=== PATIENT | female | born 1940 | race Caucasian/White ===

== ENCOUNTER 2020-11-28 16:15 | Inpatient (IN) ==
[2020-11-28] MEDS ORDERED: 0.9 % SODIUM CHLORIDE 1,000 ML IV ONE (16:22)
--- NOTE | 2020-11-28 17:00 | Emergency Department Note ---
HPI <Ming Azevedo PA-C - Last Filed: 11/28/20 18:16> General Chief complaint: Recheck/Abnormal Lab/Rx Stated complaint: Low sodium Time Seen by Provider: 11/28/20 16:18 Source: patient and family Mode of arrival: wheelchair Limitations: no limitations History of Present Illness HPI Narrative: Narrative: 80-year-old female presents emergency department with complaints of cough, headache, loss of taste and smell, nausea, fatigue, body aches, and a low sodium. She was seen at urgent care today by Dr. Littlejohn and a full work-up was done including CBC, CMP, urine, chest x-ray, abdominal x-ray. Which revealed a sodium of 121. There is also a developing infiltrate in the right lower lobe. Martha Covid test pending. Patient's son was diagnosed with Covid couple days ago and as she had been around him over the weekend as well. Patient was diagnosed with a urinary tract infection here in our department about 12 days ago and finished the ciprofloxacin. Patient reports initially she started to get better but especially in the last 5 days her symptoms have been getting worse. She has been coughing quite a bit which produces clear sputum. Her headache has been constant and her loss of taste and smell are new. She has never been diagnosed with hyponatremia before that she knows of. She has not been eating or drinking much over the last couple weeks according to her daughte r. Patient has been short of breath on exertion but denies chest pain, abdominal pain, vomiting. She did have diarrhea the week before but it has not had it in about a week or so now. Related Data Home Medications Medication Instructions Recorded Confirmed albuterol sulfate 2 puff INH Q4-6HP PRN 11/02/15 11/28/20 aspirin 325 mg PO QDAY 11/02/15 11/28/20 Allergies Allergy/AdvReac Type Severity Reaction Status Date / Time Iodinated Contrast Media Allergy Intermediate Difficulty Verified 11/28/20 20:17 [Iodinated Contrast Media - Breathing IV Dye] codeine AdvReac Mild Vomiting Verified 11/28/20 20:17 Review of Systems <Ming Azevedo PA-C - Last Filed: 11/28/20 18:16> ROS ROS Narrative: Narrative: All systems ED: reviewed and negative except as stated. Constitutional: Reports weakness Respiratory: Reports shortness of breath and cough Gastrointestinal: Reports nausea Musculoskeletal: Reports myalgia Neurological: Reports headache Endocrine: Reports fatigue PFSH <Ming Azevedo PA-C - Last Filed: 11/28/20 18:16> Narrative Patient History Narrative: Narrative: Medical/Surgical/Family History All Active Problems (Updated 11/28/20 @ 18:16 by Ming Azevedo PA-C) Acute hyponatremia (Acute) COVID (Acute) Upper abdominal pain (Acute) UTI (urinary tract infection) (Acute) Acute flank pain (Acute) Iron deficiency anemia (Acute) Upper respiratory infection (Acute) Pyelonephritis of left kidney (Acute) Diverticulosis (Acute) Pyelonephritis of left kidney (Acute) Cough (Acute) Thyroid gland disease (Chronic) Stroke (Chronic ~2013) Rheumatic fever (Chronic ~1996) Joint pain (Chronic) Hypertension, essential (Chronic) Heart trouble (Chronic) Daytime sleepiness (Chronic) Asthma (Chronic) Anemia (Chronic) Acid reflux (Chronic) Acute right hip pain (Acute) Trochanteric bursitis of right hip (Acute) Medical History Acid reflux Acute flank pain Acute right hip pain Anemia Asthma Daytime sleepiness Heart trouble Hypertension, essential Iron deficiency anemia Joint pain Rheumatic fever (~1996) Dr. Bauer Stroke (~2013) Thyroid gland disease Trochanteric bursitis of right hip Upper abdominal pain UTI (urinary tract infection) Surgical History H/O carotid endarterectomy (~2015) [place] H/O colonoscopy Dr. Medina H/O lymph node excision (~2013) [facility] H/O: hysterectomy (~1976) [facility] History of tonsillectomy and adenoidectomy (~1941) 1 years old Hx of appendectomy (~1945) 5 years old Family History Father Cancer Daughter Cancer Daughters x 2 Mother Hypertension, essential Thyroid disease Social History Smoking Status: Never smoker Alcohol Intake Frequency: does not drink Substance Use: does not use Exam <Ming Azevedo PA-C - Last Filed: 11/28/20 18:16> Narrative Narrative: Narrative: General Limitations: no limitations Head Head: Present atraumatic and normocephalic Eye Eye: Present EOMI Respiratory Respiratory: Present other (Mild right lower lobe Rales. No rhonchi or wheezes. No tachypnea no signs of respiratory distress) Cardiovascular Cardiovascular: Present regular rate, irregular rhythm and normal heart sounds Adbominal Abdominal: Present soft and other (Nontender, no rebound tenderness no guarding) Neurological Neurological: Present alert and oriented X3 Psychiatric Psychiatric: Present normal affect Skin Skin: Present warm (WNL), dry and normal color Course <Ming Azevedo PA-C - Last Filed: 11/28/20 18:16> Vital Signs Vital signs: Vital Signs Temperature 98.7 F 11/28/20 16:15 Pulse Rate 97 H 11/28/20 16:15 Respiratory Rate 21 11/28/20 16:15 Blood Pressure 170/82 11/28/20 16:15 Pulse Oximetry (%) 97 11/28/20 16:15 Temperature 99.2 F H 11/28/20 18:52 Pulse Rate 94 H 11/28/20 18:52 Respiratory Rate 18 11/28/20 18:52 Blood Pressure 153/46 11/28/20 18:52 Pulse Oximetry (%) 96 11/28/20 18:52 MDM <Ming Azevedo PA-C - Last Filed: 11/28/20 18:16> MDM Narrative Medical decision making narrative: Narrative: Patient's labs were reviewed Rapid Covid positive Patient will be admitted for hyponatremia and Covid. I spoke with the hospitalist Dr. Aly who agreed to admit the patient for further evaluation and treatment. Lab Data Result diagrams: 11/28/20 20:10 Labs: Lab Results 11/28/20 11/28/20 Range/Units 17:52 17:52 POC Hct 39 (36-48) % POC Sodium 123 L (133-145) mEq/L Sodium TNP POC Potassium 4.1 (3.3-5.1) mEql/L Potassium TNP POC Chloride 87 L (96-108) mEq/L Chloride TNP Carbon Dioxide TNP POC Total CO2 28 (22-30) mmol/L Anion Gap TNP POC BUN 15 (6-20) mg/dL BUN TNP Creatinine TNP POC Creatinine 0.7 (0.6-1.2) mg/dL GFR Calculation TNP Glucose TNP POC Glucose 102 (70-105) mg/dL Osmolality 256 L (280-300) mOSM/kg Uric Acid 3.3 (2.5-8.0) mg/dL Calcium TNP POC WB Ioniz Calcium 1.05 L (1.16-1.32) mmEq/L TSH 4.63 (0.27-5.01) uIU/mL ED POC Tests ED POC Tests: ARELIS - SARS Antigen Positive Discharge Plan Patient/Caregiver Discharge Instructions Pt seen by [facility]MIST/PA only: Yes Clinical Impression: Acute hyponatremia, COVID Patient Disposition: Xfer As Inpt ([facility]) Condition: Serious Discharge Date/Time: 11/28/20 18:30
--- NOTE | 2020-11-28 17:45 | Internal Med History&Physical ---
HPI History of Present Illness Patient information: Note initiated : 11/28/20 at 5:41 pm Service Date, if different from initiated Date: [] Patient: Nena Krishnan a 80 y/o F admitted on for Low sodium. Chief Complaint: [] History of present illness: Ms. Krishnan is a 80 year old F Presents to minor care for generalized weakness fatigue headaches fevers chills nausea but no vomiting a cough that is mostly dry but occasionally productive. Poor appetite. Also has some dyspnea. Her son who she lives with has tested positive for Covid. She has not been vaccinated. Work-up was essentially unremarkable and the monitor except for she had a sodium of 121. She denies any diuretics. She was saturating well on room air. Chest x-ray showed COPD changes and likely scattered fibrosis with possibly developing infiltrate in right lung base. Review of Systems: Pertinent positives as above. Denies vomiting/chest or abdominal pain/diarrhea. Otherwise see above. PFSH PFSH All Active Problems Upper abdominal pain (Acute) UTI (urinary tract infection) (Acute) Acute flank pain (Acute) Iron deficiency anemia (Acute) Upper respiratory infection (Acute) Pyelonephritis of left kidney (Acute) Diverticulosis (Acute) Pyelonephritis of left kidney (Acute) Cough (Acute) Thyroid gland disease (Chronic) Stroke (Chronic ~2013) Rheumatic fever (Chronic ~1996) Joint pain (Chronic) Hypertension, essential (Chronic) Heart trouble (Chronic) Daytime sleepiness (Chronic) Asthma (Chronic) Anemia (Chronic) Acid reflux (Chronic) Acute right hip pain (Acute) Trochanteric bursitis of right hip (Acute) Medical History Acid reflux Acute flank pain Acute right hip pain Anemia Asthma Daytime sleepiness Heart trouble Hypertension, essential Iron deficiency anemia Joint pain Rheumatic fever (~1996) Dr. Bauer Stroke (~2013) Thyroid gland disease Trochanteric bursitis of right hip Upper abdominal pain UTI (urinary tract infection) Surgical History H/O carotid endarterectomy (~2015) [place] H/O colonoscopy Dr. Medina H/O lymph node excision (~2013) [facility] H/O: hysterectomy (~1976) [facility] History of tonsillectomy and adenoidectomy (~1941) 1 years old Hx of appendectomy (~1945) 5 years old Family History Father Cancer Daughter Cancer Daughters x 2 Mother Hypertension, essential Thyroid disease Social History (Updated 03/30/17 @ 18:31 by Reva Palacios DO) marital status: alcohol intake frequency: does not drink substance use type: does not use MEDS/ALLERGIES Home Medications and Allergies Home Medications Medication Instructions Recorded Confirmed Type albuterol sulfate 2 puff INH Q4-6HP PRN 11/02/15 11/28/20 History aspirin 325 mg PO QDAY 11/02/15 11/28/20 History Allergies Allergy/AdvReac Type Severity Reaction Status Date / Time codeine AdvReac Unknown Vomiting Verified 11/28/20 16:15 Iodinated Contrast Media AdvReac Unknown Difficulty Verified 11/28/20 16:15 [Iodinated Contrast Media - Breathing IV Dye] EXAM Constitutional Vitals: Temp Pulse Resp BP Pulse Ox 98.7 F 94 H 26 H 170/82 94 11/28/20 16:15 11/28/20 17:34 11/28/20 17:34 11/28/20 16:15 11/28/20 17:34 Exam: General: Alert, Awake, No acute Distress Eyes/N/T: EOMI, PERRL, dry MM Head/Neck: neck supple, normocephalic atraumatic CV: RRR, No murmurs, normal s1/s2 Pulm: Clear b/l, no wheezing/rhonchi/rales Abd: soft, nontender, +BS x4 Ext: no clubbing/cyanosis/edema Neuro: Alert, no focal deficits, moves all extremities, CN 2-12 grossly intact, symmetrical strength b/l upper/lower, sensations intact b/l upper/lower Skin: warm/dry A/P Narrative A/P Narrative: A: *Hyponatremia subacute on likely chronic component: *Covid (+): -On room air *h/o Asthma/COPD: on home IH's, no O2 P: -hyponatremia w/u pending -NS IVF -f/u sodium -pt/ot -ppx: lovenox code status: cpr/shock ok but no intubation Time Spent With Patient Time: Total time spent is greater than 50% in coordination of care (as documented) at patient's floor/unit and/or counseling patient:
[2020-11-28 18:02] LABS: POC Blood Urea Nitrogen 15 mg/dL (6-20); POC CO2 28 mmol/L (22-30); POC Calcium, Ionized 1.05 mmEq/L (1.16-1.32); POC Chloride 87 mEq/L (96-108); POC Creatinine 0.7 mg/dL (0.6-1.2); POC Glucose, Random 102 mg/dL (70-105); POC Hematocrit 39 % (36-48); POC Potassium 4.1 mEql/L (3.3-5.1); POC Sodium 123 mEq/L (133-145)
[2020-11-28 19:25] LABS: Thyroid Stimulating Hormone 4.63 uIU/mL (0.27-5.01)
[2020-11-28 19:26] LABS: Uric Acid 3.3 mg/dL (2.5-8.0)
[2020-11-28] MEDS ORDERED: MAGNESIUM SULFATE 2 GM/50 ML BAG IV PRN (19:46)
[2020-11-28] MEDS ORDERED: IPRATROPIUM/ALBUTEROL 3 ML AMPUL.NEB NEB PRN (19:46)
[2020-11-28] MEDS ORDERED: 0.9 % SODIUM CHLORIDE 1,000 ML IV SCH (19:46)
[2020-11-28] MEDS ORDERED: POLYETHYLENE GLYCOL 3350 17 GM PACKET PO PRN (19:46)
[2020-11-28] MEDS ORDERED: POTASSIUM CHLORIDE 20 MEQ TABLET PO PRN ×2 (19:46)
[2020-11-28] MEDS ORDERED: ACETAMINOPHEN 325 MG TABLET PO PRN (19:46)
[2020-11-28] MEDS ORDERED: POTASSIUM CHLORIDE 40 MEQ in DEXTROSE 5% IN WATER 500 ML IV PRN (19:46)
[2020-11-28 20:16] LABS: POC Blood Urea Nitrogen 11 mg/dL (6-20); POC CO2 24 mmol/L (22-30); POC Calcium, Ionized 1.02 mmEq/L (1.16-1.32); POC Chloride 88 mEq/L (96-108); POC Creatinine 0.6 mg/dL (0.6-1.2); POC Glucose, Random 104 mg/dL (70-105); POC Hematocrit 40 % (36-48); POC Potassium 3.7 mEql/L (3.3-5.1); POC Sodium 123 mEq/L (133-145)
[2020-11-28] MEDS: ZINC SULFATE 50 MG CAPSULE PO SCH (20:46)
[2020-11-28] MEDS: 0.9 % SODIUM CHLORIDE 10 ML SYRINGE IV SCH (20:47)
[2020-11-28 21:01] LABS: Blood Urea Nitrogen 11 mg/dL (8-23); Calcium 8.1 mg/dL (8.6-10.4); Carbon Dioxide 22 mmol/L (22-30); Chloride 84 mmol/L (96-108); Glomerular Filtration Rate 85; Glucose 103 mg/dL (70-105)
[2020-11-28] MEDS ORDERED: SODIUM CHLORIDE 1 GM TABLET PO ONE (21:48)
[2020-11-28] MEDS: ONDANSETRON 4 MG/2 ML VIAL IV PRN (23:49)
[2020-11-29] MEDS: 0.9 % SODIUM CHLORIDE 10 ML SYRINGE IV SCH ×3 (04:49→21:59)
--- NOTE | 2020-11-29 07:20 | Internal Med Progress Note ---
SUBJECTIVE Subjective Patient information: Service Date, if different from initiated Date: [] Patient: Nena Krishnan 80 y/o F admitted on 11/28/20 for Low sodium. Chief Complaint: [] Interval history: History of present illness: Ms. Krishnan is a 80 year old F Presents to minor care for generalized weakness fatigue headaches fevers chills nausea but no vomiting a cough that is mostly dry but occasionally productive. Poor appetite. Also has some dyspnea. Her son who she lives with has tested positive for Covid. She has not been vaccinated. Work-up was essentially unremarkable and the monitor except for she had a sodium of 121. She denies any diuretics. She was saturating well on room air. Chest x-ray showed COPD changes and likely scattered fibrosis with possibly developing infiltrate in right lung base. 11/29 No overnight event or new complaints. She does have mild cough and some shortness of breath but is satting well on room air. Sodium gradually coming up. Review of Systems: denies headache/fever/chills/nausea/vomiting/chest or abdominal pain/diarrhea. Otherwise see above. Constitutional Vitals: Vital Signs Temp Pulse Resp BP Pulse Ox 98.6 F 71 18 128/47 92 11/29/20 03:00 11/29/20 03:00 11/29/20 03:00 11/29/20 03:00 11/29/20 03:00 Period Temp Pulse Resp BP Sys/Leger Pulse Ox Last 24 Hr 98.6 F-99.2 F 71-97 16-26 128-170/46-82 92-97 Intake and Output 11/28/20 11/29/20 11/29/20 21:59 05:59 13:59 Intake Total 1200 Output Total 470 Balance 730 Weight 71.668 kg Intake & Output: Intake & Output 11/28/20 11/29/20 11/29/20 21:59 05:59 13:59 Intake Total 1200 Output Total 470 Balance 730 Weight 71.668 kg Intake: IV 1000 Sodium Chloride 0.9% 1,000 ml @ 1000 Wide Open IV BOLUS ONE Rx#: [id number] Oral 200 Output: Void Amount 470 Other: Urine Color Bright Yellow Exam: General: Alert, Awake, No acute Distress Eyes/N/T: EOMI, Head/Neck: neck supple, CV: RRR, No murmurs, Pulm: Clear b/l, no wheezing/rhonchi/rales Abd: soft, nontender, +BS x4 Ext: no clubbing/cyanosis/edema Neuro: Alert, no focal deficits, moves all extremities, Skin: warm/dry OBJ DATA Labs CBC & Chem 7: 11/29/20 05:43 Labs: Abnormal Lab Results 11/28/20 11/28/20 11/28/20 20:10 17:52 17:52 POC Sodium 123 L 123 L Sodium 120 L POC Chloride 88 L 87 L Chloride 84 L Osmolality 256 L Calcium 8.1 L POC WB Ioniz Calcium 1.02 L 1.05 L Meds: Medications Acetaminophen (Acetaminophen 325 Mg Tablet) 650 mg PO Q6HP PRN PRN Reason: PAIN/FEVER > 101 Albuterol/Ipratropium (Ipratropium/Albuterol 3 Ml Ampul.Neb) 3 ml NEB Q4HP PRN PRN Reason: Shortness Of Breath Enoxaparin Sodium (Enoxaparin 40 Mg/0.4 Ml Syringe) 40 mg SQ DAILY [facility] Potassium Chloride 40 meq/ (Dextrose) 520 mls @ 130 mls/hr IV UD PRN PRN Reason: Potassium < 3 Magnesium Sulfate (Magnesium Sulfate) 2 gm in 50 mls @ 50 mls/hr IV UD PRN PRN Reason: Magnesium </= 1.6 Sodium Chloride (Sodium Chloride 0.9%) 1,000 mls @ 75 mls/hr IV .[id number] [facility] Stop: 11/29/20 09:05 Last Admin: 11/28/20 20:46 Dose: 75 mls/hr Documented by: Ondansetron HCl (Ondansetron 4 Mg/2 Ml Vial) 4 mg IV Q4HP PRN PRN Reason: Nausea And Vomiting Last Admin: 11/28/20 23:49 Dose: 4 mg Documented by: Polyethylene Glycol (Polyethylene Glycol 3350 17 Gm Packet) 17 gm PO DAILYP PRN PRN Reason: Constipation Potassium Chloride (Potassium Chloride 20 Meq Tablet) 40 meq PO UD PRN PRN Reason: Potssium is 3-3.5 Potassium Chloride (Potassium Chloride 20 Meq Tablet) 40 meq PO UD PRN PRN Reason: Potassium < 3 Senna (Sennosides 1 Tablet) 2 tab PO DAILYP PRN PRN Reason: Constipation Sodium Chloride (0.9 % Sodium Chloride 10 Ml Syringe) 10 ml IV Q8 [facility] Last Admin: 11/29/20 04:49 Dose: Not Given Documented by: Zinc Sulfate (Zinc Sulfate 50 Mg Capsule) 50 mg PO DAILY [facility] Last Admin: 11/28/20 20:46 Dose: 50 mg Documented by: A/P Narrative A/P Narrative: A: *Hyponatremia subacute on likely chronic component: *Covid (+): -On room air *h/o Asthma/COPD: on home IH's, no O2 P: -hyponatremia w/u pending still -NS IVF d/c, salt tabs -f/u sodium -pt/ot -ppx: lovenox code status: cpr/shock ok but no intubation Time Spent With Patient Time: Total time spent is greater than 50% in coordination of care (as do cumented) at patient's floor/unit and/or counseling patient: QUALITY VTE Deep Vein Thrombosis/Pulmonary Embolism Present on Admission: No
[2020-11-29 08:26] LABS: ALT/SGPT 28 U/L (<40); AST/SGOT 59 U/L (<32); Alkaline Phosphatase 59 U/L (39-117); Bilirubin,Direct < 0.2 mg/dL (0-0.3); Bilirubin,Total 0.2 mg/dL (0.1-1.0); Blood Urea Nitrogen 10 mg/dL (8-23); Calcium 7.9 mg/dL (8.6-10.4); Carbon Dioxide 20 mmol/L (22-30); Chloride 91 mmol/L (96-108); Globulin 3.1 gm/dL (2.2-3.7); Glomerular Filtration Rate 81; Glucose 97 mg/dL (70-105); Lactate Dehydrogenase 313 U/L (135-225); Phosphorous 2.8 mg/dL (2.5-4.5); Triglycerides 56 mg/dL (<150); Uric Acid 3.2 mg/dL (2.5-8.0)
[2020-11-29] MEDS: ZINC SULFATE 50 MG CAPSULE PO SCH (08:33)
[2020-11-29] MEDS: ENOXAPARIN 40 MG/0.4 ML SYRINGE SQ SCH (08:34)
[2020-11-29] MEDS: SODIUM CHLORIDE 1 GM TABLET PO SCH ×3 (11:02→19:14)
[2020-11-29 14:48] LABS: Appearance,Urine CLEAR (Clear); Bilirubin,Urine Negative (Negative); Color,Urine YELLOW; Culture Indicated,Urine No; Glucose,Urine (UA) Negative (Negative); Ketones,Urine Negative (Negative); Leukocyte Esterase,Urine Negative /ug (Negative); Nitrate,Urine Negative (Negative); Protein,Urine 30 mg/dL (Negative); Urine Blood 0.03 mg/dL (Negative); Urine RBC 1 /hpf (0-3); Urine Squamous Epithelial Cell 0 /hpf (0-4); Urine WBC 2 /hpf (0-4); Urobilinogen,Urine Negative
[2020-11-29] MEDS: SENNOSIDES 1 TABLET PO PRN (15:20)
[2020-11-29 18:47] LABS: POC Blood Urea Nitrogen 11 mg/dL (6-20); POC CO2 24 mmol/L (22-30); POC Calcium, Ionized 1.03 mmEq/L (1.16-1.32); POC Chloride 92 mEq/L (96-108); POC Creatinine 0.7 mg/dL (0.6-1.2); POC Glucose, Random 101 mg/dL (70-105); POC Hematocrit 37 % (36-48); POC Potassium 3.8 mEql/L (3.3-5.1); POC Sodium 127 mEq/L (133-145)
[2020-11-30] MEDS: 0.9 % SODIUM CHLORIDE 10 ML SYRINGE IV SCH ×3 (05:22→21:32)
[2020-11-30 09:31] LABS: ALT/SGPT 29 U/L (<40); AST/SGOT 59 U/L (<32); Albumin 2.7 gm/dL (3.2-5.2); Albumin/Globulin Ratio 0.9 (1.0-2.3); Alkaline Phosphatase 57 U/L (39-117); Bilirubin,Total 0.2 mg/dL (0.1-1.0); Blood Urea Nitrogen 10 mg/dL (8-23); Calcium 8.3 mg/dL (8.6-10.4); Carbon Dioxide 25 mmol/L (22-30); Chloride 94 mmol/L (96-108); Glomerular Filtration Rate 81; Glucose 94 mg/dL (70-105)
[2020-11-30] MEDS: ONDANSETRON 4 MG/2 ML VIAL IV PRN (09:46)
[2020-11-30] MEDS: SENNOSIDES 1 TABLET PO PRN (11:19)
[2020-11-30] MEDS: SODIUM CHLORIDE 1 GM TABLET PO SCH ×3 (11:19→21:08)
[2020-11-30] MEDS: ZINC SULFATE 50 MG CAPSULE PO SCH (11:19)
[2020-11-30] MEDS: ENOXAPARIN 40 MG/0.4 ML SYRINGE SQ SCH (11:21)
[2020-11-30] MEDS ORDERED: guaiFENesin/DEXTROMETHORPHAN ORAL SOL PO PRN (12:17)
--- NOTE | 2020-11-30 14:03 | Internal Med Progress Note ---
SUBJECTIVE Subjective Patient information: Note initiated : 11/30/20 at 1:56 pm Service Date, if different from initiated Date: [] Patient: Nena Krishnan a 80 y/o F admitted on 11/28/20 for Low sodium. Chief Complaint: [CoVID pneumonia, hyponatremia] Interval history: History of present illness: Ms. Krishnan is a 80 year old F Presents to minor care for generalized weakness fatigue headaches fevers chills nausea but no vomiting a cough that is mostly dry but occasionally productive. Poor appetite. Also has some dyspnea. Her son who she lives with has tested positive for Covid. She has not been vaccinated. Work-up was essentially unremarkable and the monitor except for she had a sodium of 121. She denies any diuretics. She was saturating well on room air. Chest x-ray showed COPD changes and likely scattered fibrosis with possibly developing infiltrate in right lung base. 11/29 No overnight event or new complaints. She does have mild cough and some shortness of breath but is satting well on room air. Sodium gradually coming up. 11/30: Serum sodium level 126 today. Afebrile overnight. Continued to tolerate room air. Urine studies suggest SIADH as the reason of hyponatremia. Patient is coming of shortness of breath. Patient is coming of productive cough with clear sputum productions. Patient is complaining of chest pain when she coughed. Patient denies any fever or chills. Patient is complaining of general body weakness. Constitutional Vitals: Vital Signs Temp Pulse Resp BP Pulse Ox 36.4 C 82 18 148/71 93 11/30/20 11:50 11/30/20 11:50 11/30/20 11:50 11/30/20 11:50 11/30/20 11:50 Period Temp Pulse Resp BP Sys/Leger Pulse Ox Last 24 Hr 36.4 C-37.2 C 73-86 16-18 132-151/54-76 91-93 Intake and Output 11/29/20 11/30/20 11/30/20 21:59 05:59 13:59 Intake Total 110 400 118 Output Total 325 470 360 Balance -70 -242 Weight 71.668 kg Intake & Output: Intake & Output 11/29/20 11/30/20 11/30/20 21:59 05:59 13:59 Intake Total 110 400 118 Output Total 325 470 360 Balance -215 -70 -242 Weight 71.668 kg Intake: Oral 110 400 118 Output: Void Amount 325 470 360 Other: Meal Lunch Breakfast Percent of Meal Consumed 50% 25% Feeding Ability Independent Independent Urine Appearance Clear Clear Urine Color Dark Yellow Bright Yellow Urine Odor Normal Normal Stool Size Smear Stool Color Brown Stool Consistency Soft General appearance: cooperative and no acute distress Head Head exam: Present atraumatic and normocephalic Eye Eye exam: Present EOMI and PERRL ENT ENT exam: Present mucous membranes moist, normal exam and normal external ear exam Neck Neck exam: Present normal inspection; Absent lymphadenopathy, tenderness and thyromegaly Respiratory Respiratory exam: Present rhonchi; Absent accessory muscle use, respiratory distress and wheezes Cardiovascular Cardiovascular exam: Present normal rate and rhythm; Absent JVD GI/Abdominal GI/Abdominal exam: Present normal bowel sounds and soft; Absent organomegaly and tenderness Extremities Exam Extremities exam: Present full ROM, normal capillary refill and normal inspection; Absent tenderness Neurological Exam Neurological exam: Present alert, CN II-XII intact and oriented X3; Absent motor sensory deficit Psychiatric Psychiatric exam: Present normal affect and normal mood; Absent anxious and depressed Skin Skin exam: Present dry and intact OBJ DATA Labs CBC & Chem 7: 11/30/20 06:43 Labs: Abnormal Lab Results 11/30/20 11/29/20 11/29/20 06:43 18:40 13:30 POC Sodium 127 L Sodium 126 L POC Chloride 92 L Chloride 94 L Carbon Dioxide Anion Gap 7.0 L Osmolality Calcium 8.3 L POC WB Ioniz Calcium 1.03 L AST 59 H Lactate Dehydrogenase Total Protein 5.7 L Albumin 2.7 L Albumin/Globulin Ratio 0.9 L Urine Protein 30 A 11/29/20 11/28/20 11/28/20 05:43 20:10 17:52 POC Sodium 123 L 123 L Sodium 123 L 120 L POC Chloride 88 L 87 L Chloride 91 L 84 L Carbon Dioxide 20 L Anion Gap Osmolality Calcium 7.9 L 8.1 L POC WB Ioniz Calcium 1.02 L 1.05 L AST 59 H Lactate Dehydrogenase 313 H Total Protein Albumin 3.0 L Albumin/Globulin Ratio Urine Protein 11/28/20 17:52 POC Sodium Sodium POC Chloride Chloride Carbon Dioxide Anion Gap Osmolality 256 L Calcium POC WB Ioniz Calcium AST Lactate Dehydrogenase Total Protein Albumin Albumin/Globulin Ratio Urine Protein Meds: Medications Acetaminophen (Acetaminophen 325 Mg Tablet) 650 mg PO Q6HP PRN PRN Reason: PAIN/FEVER > 101 Albuterol/Ipratropium (Ipratropium/Albuterol 3 Ml Ampul.Neb) 3 ml NEB Q4HP PRN PRN Reason: Shortness Of Breath Enoxaparin Sodium (Enoxaparin 40 Mg/0.4 Ml Syringe) 40 mg SQ DAILY [facility] Last Admin: 11/30/20 11:21 Dose: 40 mg Documented by: Guaifenesin (Guaifenesin/Dextromethorphan Oral Josselin) 10 ml PO Q4HP PRN PRN Reason: Cough Potassium Chloride 40 meq/ (Dextrose) 520 mls @ 130 mls/hr IV UD PRN PRN Reason: Potassium < 3 Magnesium Sulfate (Magnesium Sulfate) 2 gm in 50 mls @ 50 mls/hr IV UD PRN PRN Reason: Magnesium </= 1.6 Ondansetron HCl (Ondansetron 4 Mg/2 Ml Vial) 4 mg IV Q4HP PRN PRN Reason: Nausea And Vomiting Last Admin: 11/30/20 09:46 Dose: 4 mg Documented by: Polyethylene Glycol (Polyethylene Glycol 3350 17 Gm Packet) 17 gm PO DAILYP PRN PRN Reason: Constipation Last Admin: 11/29/20 11:04 Dose: 17 gm Documented by: Potassium Chloride (Potassium Chloride 20 Meq Tablet) 40 meq PO UD PRN PRN Reason: Potssium is 3-3.5 Potassium Chloride (Potassium Chloride 20 Meq Tablet) 40 meq PO UD PRN PRN Reason: Potassium < 3 Senna (Sennosides 1 Tablet) 2 tab PO DAILYP PRN PRN Reason: Constipation Last Admin: 11/30/20 11:19 Dose: 2 tab Documented by: Sodium Chloride (0.9 % Sodium Chloride 10 Ml Syringe) 10 ml IV Q8 [facility] Last Admin: 11/30/20 05:22 Dose: 10 ml Documented by: Sodium Chloride (Sodium Chloride 1 Gm Tablet) 1 gm PO TID [facility] Stop: 11/30/20 21:01 Last Admin: 11/30/20 11:19 Dose: 1 gm Documented by: Zinc Sulfate (Zinc Sulfate 50 Mg Capsule) 50 mg PO DAILY [facility] Last Admin: 11/30/20 11:19 Dose: 50 mg Documented by: A/P Assessment and plan (1) Acute hyponatremia: Status: Acute (2) SIADH (syndrome of inappropriate ADH production): Status: Acute (3) COVID: Status: Acute (4) Asthma: Status: Chronic (5) COPD (chronic obstructive pulmonary disease): Status: Acute Narrative A/P Narrative: Assessment and Plans: 1. CoVID pneumonia: Standing patient's MedSurg Isolation protocol: Airborne and contact Currently tolerating room air and afebrile, does no indication for Covid specific treatment such as dexamethasone or remdesivir #2 stable asthma and COPD: No clinical signs of exacerbations Bronchodilator as needed for wheezing or shortness of breath #3 hyponatremia secondary to SIADH: Urine studies showing urine sodium greater than 20-40 as well as urine osmolality greater than 100, suggesting SIADH being the underlying cause for hyponatremia Sodium chloride 1 g p.o. 3 times daily 2L/day fluid restriction CMP daily to trend serum sodium level GI prophylaxis: Not currently indicated DVT prophylaxis: Lovenox CODE STATUS: Limited code with no intubation Prognosis: Stable Dispositions: Inpatient MedSurg Time Spent With Patient Time: Total time spent is greater than 50% in coordination of care (as documented) at patient's floor/unit and/or counseling patient: Total time spent with greater than 50% in coordination of care (as documented) at patient's floor/unit and/or counseling patient:: Greater than 35 minutes QUALITY VTE Deep Vein Thrombosis/Pulmonary Embolism Present on Admission: No
[2020-12-01] MEDS: 0.9 % SODIUM CHLORIDE 10 ML SYRINGE IV SCH ×2 (04:21→16:52)
[2020-12-01 07:42] LABS: ALT/SGPT 30 U/L (<40); AST/SGOT 58 U/L (<32); Albumin 2.7 gm/dL (3.2-5.2); Albumin/Globulin Ratio 0.8 (1.0-2.3); Alkaline Phosphatase 62 U/L (39-117); Bilirubin,Total 0.2 mg/dL (0.1-1.0); Blood Urea Nitrogen 7 mg/dL (8-23); Calcium 7.9 mg/dL (8.6-10.4); Carbon Dioxide 23 mmol/L (22-30); Chloride 95 mmol/L (96-108); Globulin 3.2 gm/dL (2.2-3.7); Glomerular Filtration Rate 85; Glucose 103 mg/dL (70-105)
[2020-12-01] MEDS: ZINC SULFATE 50 MG CAPSULE PO SCH (10:50)
[2020-12-01] MEDS: ENOXAPARIN 40 MG/0.4 ML SYRINGE SQ SCH (10:51)
--- NOTE | 2020-12-01 14:09 | Discharge Summary ---
Discharge Provider Provider Patient information: Note initiated : 12/01/20 at 2:06 pm Service Date, if different from initiated Date: [] Patient: Nena Krishnan a 80 y/o F admitted on 11/28/20 for Low sodium. 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 Krishnan is a 80 year old F Presents to minor care for generalized weakness fatigue headaches fevers chills nausea but no vomiting a cough that is mostly dry but occasionally productive. Poor appetite. Also has some dyspnea. Her son who she lives with has tested positive for Covid. She has not been vaccinated. Work-up was essentially unremarkable and the monitor except for she had a sodium of 121. She denies any diuretics. She was saturating well on room air. Chest x-ray showed COPD changes and likely scattered fibrosis with possibly developing infiltrate in right lung base. Date of admission: 11/28/20 18:52 Discharge date: 12/01/20 Primary care physician: Kyaw Bull MD Consults: 11/28/20 Consult to Physician [CONS] Stat Comment: Consulting Provider: Ruben Aly Reason For Exam: Physician to Consult Discharge Meds Discharge Medications Home Medications albuterol sulfate 2 puff INH Q4-6HP PRN 11/02/15 [History Confirmed 11/28/20 Last Taken Unknown] aspirin 325 mg PO QDAY 11/02/15 [History Confirmed 11/28/20 Last Taken Unknown] dextromethorphan-guaifenesin [Robafen DM Cough] 10 ml PO Q4HP PRN 10 Days #200 ml 12/01/20 [Rx Last Taken Unknown] sodium chloride 1,000 mg PO TID #60 tab 12/01/20 [Rx Last Taken Unknown] COURSE Hospital Course Hospital course: Patient was admitted on November 28, 2020 for hyponatremia. Patient was also being diagnosed with Covid pneumonia. For her Covid pneumonia, patient was able to tolerate room air and was pretty much asymptomatic. As such, no supplemental oxygen therapy nor Covid specific treatment such as remdesivir, steroid, or full dose anticoagulation. 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 Sodium tablets as well as fluid restrictions were implemented together with daily serum sodium level check. Her serum sodium level eventually improved from 121 at the time of admissions to 131 at the time of discharge. Patient had reached clinical stability on December 01, 2020, and the decision was thus made to discharge patient home with prescriptions given, instruction to follow with PCP in 2 weeks given, and all questions were answered prior to patient being physically discharged. Discharge diagnosis: CoVID pneumonia, SIADH Time Spent with Patient Time attestation: Total time spent providing and/or coordinating discharge services: Patient was admitted on November 28, 2020 for hyponatremia. Patient was also being diagnosed with Covid pneumonia. For her Covid pneumonia, patient was able to tolerate room air and was pretty much asymptomatic. As such, no supplemental oxygen therapy nor Covid specific treatment such as remdesivir, steroid, or full dose anticoagulation. 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 Sodium tablets as well as fluid restrictions were implemented together with daily serum sodium level check. Her serum sodium level eventually improved from 121 at the time of admissions to 131 at the time of discharge. Patient had reached clinical stability on December 01, 2020, and the decision was thus made to discharge patient home with prescriptions given, instruction to follow with PCP in 2 weeks given, and all questions were answered prior to patient being physically discharged. EXAM Constitutional Vitals: Temp Pulse Resp BP Pulse Ox 36.6 C 69 18 132/70 91 12/01/20 11:00 12/01/20 11:00 12/01/20 11:00 12/01/20 11:12/01/20 11:00 General appearance: cooperative and no acute distress Head Head exam: Present atraumatic and normocephalic Eye Eye exam: Present EOMI and PERRL ENT ENT exam: Present mucous membranes moist, normal exam and normal external ear exam Neck Neck exam: Present normal inspection; Absent lymphadenopathy, tenderness and thyromegaly Respiratory Respiratory exam: Absent accessory muscle use, respiratory distress and wheezes Cardiovascular Cardiovascular exam: Present normal rate and rhythm; Absent JVD GI/Abdominal GI/Abdominal exam: Present normal bowel sounds and soft; Absent organomegaly and tenderness Extremities Exam Extremities exam: Present full ROM, normal capillary refill and normal inspection; Absent tenderness Neurological Exam Neurological exam: Present alert, CN II-XII intact and oriented X3; Absent motor sensory deficit Psychiatric Psychiatric exam: Present normal affect and normal mood; Absent anxious and depressed Skin Skin exam: Present dry and intact Discharge Data Data Completed and Pending Labs on day of discharge: Labs from last 24 hours 12/01/20 05:53 Sodium 131 L Potassium 3.8 Chloride 95 L Carbon Dioxide 23 Anion Gap 13.0 BUN 7 L Creatinine 0.6 GFR Calculation 85 Glucose 103 Calcium 7.9 L Total Bilirubin 0.2 AST 58 H ALT 30 Alkaline Phosphatase 62 Total Protein 5.9 Albumin 2.7 L Globulin 3.2 Albumin/Globulin Ratio 0.8 L Discharge Plan Patient/Caregiver Discharge Instructions Activity: increase activity as tolerated Diet: Regular Diet Prescriptions: New dextromethorphan-guaifenesin [Robafen DM Cough] 10-100 mg/5 mL Liquid 10 ml PO Q4HP PRN (Reason: Cough) 10 Days Qty: 200 RF: 0 sodium chloride 1 gram tablet 1,000 mg PO TID Qty: 60 RF: 0 Continued aspirin 325 MG tablet 325 mg PO QDAY RF: 0 albuterol sulfate 1 PUFF inhaler 2 puff INH Q4-6HP PRN (Reason: Shortness Of Breath) RF: 0 Follow Up Plan Follow up with: Kyaw Bull MD [Primary Care Provider] - Patient Disposition: Home, Self-Care Prognosis: Serious Rehab Potential: Good I certify that the patient requires SNF services: No Overall status at discharge: patient is back to baseline Discharge Orders: Discharge Order (Routine); Ordered 12/01/20 Ordered By: Matty BARBOSA VTE Deep Vein Thrombosis/Pulmonary Embolism Present on Admission: No
== END 2020-12-01 16:10 | disposition home or self-care (01) | DRG 643 ==
LOC: ED 16:15 → MEDSUR 18:30
PROVIDERS: ADMIT Internal Medicine; ATTEND Internal Medicine